=== PATIENT | male | born 1940 | race Caucasian/White ===

== ENCOUNTER 2017-11-01 09:14 | Outpatient (CLI) | payer MEDICARE, BC ==
--- NOTE | 2017-11-01 10:01 | RAD ---
CHEST PA AND LATERAL: History: 77-year-old male with history of dyspnea. FINDINGS: Heart size within normal limits. The lungs are clear. IMPRESSION: No acute intrathoracic disease. Atherosclerosis of the aorta with ectasia. Stable from prior exam, . POS: KEVIN
== END 2017-11-01 09:15 | disposition home or self-care (01) ==
LOC: RAD 09:14
PROVIDERS: ATTEND Internal Medicine Critical Care Medicine
DX: R06.00 Dyspnea, unspecified (principal); I70.0 Atherosclerosis of aorta
CPT/HCPCS: 71020

== ENCOUNTER 2018-09-07 16:26 | Outpatient (CLI) | payer MEDICARE, BC ==
[2018-09-07 17:59] LABS: ALT (SGPT) 34 U/L (8-55); AST (SGOT) 29 U/L (5-34); Albumin 4.1 g/dL (3.4-4.8); Alkaline Phosphatase 154 U/L (40-150); Anion Gap 15 mmol/L (10-20); BUN (Urea Nitrogen) 42 mg/dL (8.4-25.7); Bilirubin, Direct 2.5 mg/dL (0.1-0.3); Bilirubin, Total 4.7 mg/dL (0.2-1.2); Calc. Creatinine Clearance 0 mL/min (70-130); Calcium 9.6 mg/dL (7.8-10.44); Carbon Dioxide 27 mmol/L (23-31); Chloride 96 mmol/L (98-107); Estimated GFR-MDRD 34; Globulin 2.1 g/dL (2.4-3.5); Glucose 91 mg/dL (83-110); Potassium 3.8 mmol/L (3.5-5.1); Protein, Total 6.2 g/dL (5.8-8.1); Sodium 134 mmol/L (136-145)
[2018-09-07 18:29] LABS: Hemoglobin 13.5 g/dL (14.0-18.0); Lymphocytes 80 % (21-51); MDiff Complete? YES; Mean Corpuscular HGB CONC 32.8 g/dL (32.0-36.0); Mean Corpuscular Hemoglobin 32.4 pg (27.0-31.0); Mean Corpuscular Volume 98.9 fL (78.0-98.0); Mean Platelet Volume 10.3 fL (7.4-10.4); Monocytes 1 % (0-10); Neutrophil 18 % (42-75); PLT Morphology Comment Appears Decreased; Platelet Count 109 thou/uL (130-400); RBC Distribution Width 12.1 % (11.5-14.5); RBC Morphology Normal; Red Blood Cell (RBC) Count 4.15 mill/uL (4.70-6.10); Reflex for Review?? NO
== END 2018-09-07 16:27 | disposition home or self-care (01) ==
LOC: LABBT 16:26
PROVIDERS: ATTEND Surgery
DX: Z01.812 Encounter for preprocedural laboratory examination (principal); K80.20 Calculus of gallbladder without cholecystitis without obstruction; K80.50 Calculus of bile duct without cholangitis or cholecystitis without obstruction
CPT/HCPCS: 80053; 80076; 85025

== ENCOUNTER 2018-09-11 06:26 | Inpatient (IN) | payer MEDICARE, BC ==
[2018-09-07 16:42] VITALS: BMI 30.2
[2018-09-11] MEDS ORDERED: cefOXitin 2 GM VIAL ONE (07:03)
[2018-09-11] MEDS ORDERED: Sodium Chloride 0.9% 100 ML ONE (07:04)
[2018-09-11] MEDS ORDERED: Fentanyl 250 MCG/5 ML VIAL ONE (08:40)
[2018-09-11] MEDS ORDERED: Bupivacaine/Epinephrine 0.25% 30 ML VIAL ONE (08:49)
[2018-09-11] MEDS ORDERED: Iothalamate Meglumine 60% 50 ML VIAL FS ONE (08:59)
[2018-09-11] MEDS ORDERED: Promethazine HCl 25 MG/ML VIAL IM PRN (10:27)
[2018-09-11] MEDS ORDERED: Dextrose 5% in Water 1,000 ML IV PRN (10:27)
[2018-09-11] MEDS ORDERED: Dextrose 50% Abboject 50 ML SYRINGE SLOW IVP PRN (10:27)
[2018-09-11] MEDS ORDERED: HYDROcodone/Acetaminophen 10/325 mg Tablet PO PRN (10:27)
[2018-09-11] MEDS ORDERED: Mag-Al 1200 mg/1200 mg/30 ML UDCUP PO PRN (10:27)
[2018-09-11] MEDS ORDERED: Ondansetron HCl/PF 4 MG/2 ML Vial IVP PRN (10:27)
[2018-09-11] MEDS ORDERED: hydrALAZINE 20 MG/ML VIAL SLOW IVP PRN (10:27)
[2018-09-11] MEDS ORDERED: Calcium Carbonate 500 MG ChewTAB PO PRN (10:27)
[2018-09-11] MEDS ORDERED: Fentanyl 100 MCG/2 ML VIAL ONE (10:54)
[2018-09-11] MEDS ORDERED: D5 1/2 NS w/20 mEq KCL 1,000 ML ONE (10:57)
--- NOTE | 2018-09-11 12:55 | OP ---
PREOPERATIVE DIAGNOSIS: Gangrenous cholecystitis. SURGEON: Sudhir Freedman M.D. PROCEDURE PERFORMED: Laparoscopic cholecystectomy with intraoperative cholangiogram. INDICATIONS: An 78-year-old male who has been having severe epigastric pain for the last 5 days. He had an ultrasound showing gallstones and mild wall thickening. He is on Xarelto for atrial fibrilla tion. He has been off that now for 3 days. His liver function tests were elevated. FINDINGS: He had a gangrenous gallbladder. Negative cholangiogram. PROCEDURE IN DETAIL: After informed consent was obtained, the patient was taken to the operating piter m and given general endotracheal anesthesia, placed in the supine position. The abdomen was prepped and draped in usual fashion. Local anesthesia infiltrated subcutaneously and deep and a subumbilical incision was performed. The subcu divided sharply. The fascia was grasped and two stay sutures of 0 Vicryl placed through either side of midline. Midline incised. Digital palpation revealed no loca l adhesions. A blunt 10-12 trocar inserted. Pneumoperitoneum was created to a pressure of 15 mmHg. Zero degree laparoscope inserted under direct vision, three 5 mm ports placed subcostally. The gall bladder was distended and plastered with omentum. The omentum was taken down to expose the dome of t he gallbladder. This looked necrotic. It was aspirated and 150 mL of thick cloudy fluid removed. T his was sent for culture and sensitivity. Then using blunt and sharp dissection, the omentum was pee led off the gallbladder as well as the duodenum to expose the cystic duct and artery. A clip was emilia christal at the base of the cystic duct and the cystic duct was incised. An Arrow cholangiocatheter inser leida. Intraoperative cholangiogram performed. This showed free flow into the duodenum, no filling de fects, normal intrahepatic ducts. The catheter removed. The cystic duct was triply ligated and divi ded. The artery triply ligated and divided. The gallbladder was removed from its fossa utilizing el ectrocautery. It was placed in an Endosac and removed from the abdomen in the Endosac. Hemostasis a chieved utilizing electrocautery as well as Nichole powder. A drain was placed and brought out throug h the lateral most incision Hemostasis assured. Trocars and retractors removed. The fascia closed w ith interrupted 0 Vicryl suture. The skin closed with interrupted 4-0 Rapide. Dermabond applied. T he patient tolerated the procedure well and was transferred to recovery in good condition. Sponge an d needle count verified correct x2.
[2018-09-11] MEDS: Piperacillin/Tazobactam 3.375 GM in Sodium Chloride 0.9% 100 ML IVPB SCH ×2 (13:08→18:30)
[2018-09-11] MEDS ORDERED: PHENYLEPHRINE-NS 100 MCG/ML 10 ML SYRINGE ONE (14:21)
[2018-09-11] MEDS ORDERED: Ondansetron HCl/PF 4 MG/2 ML Vial ONE (14:21)
[2018-09-11] MEDS ORDERED: Glycopyrrolate 0.2 MG/ML 5 ML SYRINGE ONE (14:21)
--- NOTE | 2018-09-11 17:40 | RAD ---
INTRAOPERATIVE CHOLANGIOGRAM: Date: 09/11/18 HISTORY: Cholecystectomy EXPOSURE: 0.635 mGy*cm^2. 2 seconds. FINDINGS: Two fluoroscopic views demonstrate opacification of normal caliber intra and extrahepatic biliary sys tem. Contrast is noted in the duodenum. IMPRESSION: Fluoroscopy as above. POS: KEVIN
[2018-09-11] MEDS: D5 1/2 NS w/20 mEq KCL 1,000 ML IV SCH ×2 (18:31→20:44)
[2018-09-11] MEDS: Tamsulosin HCl 0.4 MG CAP PO SCH (20:44)
[2018-09-11] MEDS: HYDROcodone/Acetaminophen 10/325 mg Tablet PO PRN (20:44)
[2018-09-11] MEDS: Famotidine/PF 20 mg/2ml Vial SLOW IVP SCH (20:44)
[2018-09-11] MEDS: Famotidine 20 MG TAB PO SCH (20:44)
[2018-09-11] MEDS ORDERED: Tamsulosin HCl 0.4 MG CAP PO SCH (21:00)
[2018-09-11] MEDS: Zolpidem Tartrate 5 MG TAB PO PRN (22:19)
[2018-09-12] MEDS: Piperacillin/Tazobactam 3.375 GM in Sodium Chloride 0.9% 100 ML IVPB SCH ×5 (00:09→23:37)
[2018-09-12] MEDS: D5 1/2 NS w/20 mEq KCL 1,000 ML IV SCH ×3 (02:59→20:45)
[2018-09-12 06:18] LABS: Band 2 % (5-11); Hemoglobin 10.9 g/dL (14.0-18.0); Lymphocytes 61 % (21-51); MDiff Complete? YES; Mean Corpuscular HGB CONC 31.6 g/dL (32.0-36.0); Mean Corpuscular Hemoglobin 31.5 pg (27.0-31.0); Mean Corpuscular Volume 99.4 fL (78.0-98.0); Monocytes 3 % (0-10); Neutrophil 34 % (42-75); PLT Morphology Comment Appears Adequate; Platelet Count 142 thou/uL (130-400); RBC Distribution Width 11.8 % (11.5-14.5); Red Blood Cell (RBC) Count 3.48 mill/uL (4.70-6.10); White Blood Cell (WBC) Count 30.8 thou/uL (4.8-10.8)
[2018-09-12 06:24] LABS: ALT (SGPT) 39 U/L (8-55); AST (SGOT) 48 U/L (5-34); Albumin 3.1 g/dL (3.4-4.8); Alkaline Phosphatase 152 U/L (40-150); Anion Gap 11 mmol/L (10-20); BUN (Urea Nitrogen) 14 mg/dL (8.4-25.7); Bilirubin, Total 1.9 mg/dL (0.2-1.2); Calc. Creatinine Clearance 81 mL/min (70-130); Calcium 8.8 mg/dL (7.8-10.44); Carbon Dioxide 27 mmol/L (23-31); Chloride 101 mmol/L (98-107); Estimated GFR-MDRD 64; Globulin 2.2 g/dL (2.4-3.5); Glucose 141 mg/dL (83-110); Lipase 8 U/L (8-78); Potassium 3.8 mmol/L (3.5-5.1); Protein, Total 5.3 g/dL (5.8-8.1); Sodium 135 mmol/L (136-145)
[2018-09-12] MEDS ORDERED: Torsemide 20 MG TAB PO SCH ×2 (09:00→11:30)
--- NOTE | 2018-09-12 09:31 | PRG ---
DATE OF SERVICE: 09/12/2018 SUBJECTIVE: The patient feels a lot better today. Minimal pain, no nausea or vomiting. He is meka ating a regular diet. PHYSICAL EXAMINATION: VITAL SIGNS: His temperature is 98.5, pulse 80, blood pressure 132/77. He has had 160 out his BOLIVAR, s erosanguineous. LABORATORY: His white count is 30, H&H 10 and 34, platelet count of 142. Electrolytes; his T-biliru bin is 1.9 is down from 4.7, so that is an improvement. Alkaline phosphatase 152. ASSESSMENT: Improved. PLAN: We will saline lock IV. I want him to have at least another dose of IV antibiotics. I need h im to wait at least until tomorrow to start his Eliquis.
[2018-09-12] MEDS: Atenolol 25 MG TAB PO SCH (09:33)
[2018-09-12] MEDS: Enoxaparin Sodium 40 MG/0.4 ML SYRINGE SC SCH (09:33)
[2018-09-12] MEDS: Lisinopril 10 MG TAB PO SCH (09:33)
[2018-09-12] MEDS: Famotidine 20 MG TAB PO SCH ×2 (09:34→20:48)
[2018-09-12] MEDS: Famotidine/PF 20 mg/2ml Vial SLOW IVP SCH ×2 (12:41→20:49)
[2018-09-12] MEDS: HYDROcodone/Acetaminophen 10/325 mg Tablet PO PRN (15:25)
[2018-09-12] MEDS: Tamsulosin HCl 0.4 MG CAP PO SCH (20:48)
[2018-09-12] MEDS: Zolpidem Tartrate 5 MG TAB PO PRN (20:48)
[2018-09-13] MEDS: D5 1/2 NS w/20 mEq KCL 1,000 ML IV SCH (04:57)
[2018-09-13] MEDS: Piperacillin/Tazobactam 3.375 GM in Sodium Chloride 0.9% 100 ML IVPB SCH ×2 (06:01→11:40)
[2018-09-13] MEDS ORDERED: Torsemide 20 MG TAB PO SCH (09:00)
[2018-09-13] MEDS: Lisinopril 10 MG TAB PO SCH (09:01)
[2018-09-13] MEDS: Famotidine 20 MG TAB PO SCH (09:01)
[2018-09-13] MEDS: Atenolol 25 MG TAB PO SCH (09:02)
[2018-09-13] MEDS: Famotidine/PF 20 mg/2ml Vial SLOW IVP SCH (09:04)
[2018-09-13] MEDS: HYDROcodone/Acetaminophen 10/325 mg Tablet PO PRN (09:06)
[2018-09-13] MEDS: Enoxaparin Sodium 40 MG/0.4 ML SYRINGE SC SCH (11:34)
[2018-09-13 11:46] VITALS: BP 141/85; TEMP 98.1
--- NOTE | 2018-09-13 13:10 | DIS ---
DISCHARGE DIAGNOSIS: Acute gangrenous cholecystitis. PROCEDURES DURING ADMISSION: Laparoscopic cholecystectomy. HOSPITAL COURSE: The patient was admitted, given IV antibiotics, taken to the operating room where vicky saba underwent a laparoscopic cholecystectomy, was found to have a gangrenous gallbladder. Cultures gre w out Klebsiella pneumoniae and Enterobacter. He was treated with IV antibiotics. He was drained. Drain output became minimal. He is tolerating a regular diet. He is afebrile. Pain has been well c ontrolled on p.o. meds. He is discharged home on his usual medications with ciprofloxacin 500 b.i.d. , Zofran and hydrocodone. He will follow up with me in 2 weeks. He will resume his Xarelto.
== END 2018-09-13 13:35 | disposition home or self-care (01) | DRG 419 ==
LOC: SDC 06:26 → SURG A 10:27
PROVIDERS: ADMIT Surgery; ATTEND Surgery
PROC: 0FT44ZZ Resection of Gallbladder, Percutaneous Endoscopic Approach (ICD-10-PCS; principal; 2018-09-11)
PROC: BF101ZZ Fluoroscopy of Bile Ducts using Low Osmolar Contrast (ICD-10-PCS; 2018-09-11)
DX: K81.0 Acute cholecystitis (principal); K82.A1 Gangrene of gallbladder in cholecystitis; B96.1 Klebsiella pneumoniae [K. pneumoniae] as the cause of diseases classified elsewhere; Z87.891 Personal history of nicotine dependence; Z80.9 Family history of malignant neoplasm, unspecified
CPT/HCPCS: 36415; 47532; 80053; 83690; 85025; 87070; 87077; 87186; 87205; 88304; J0694; J1650; J2270; J2405; J2543; J3010; J7050; Q9961

== ENCOUNTER 2021-12-29 19:41 | Emergency (ER) | payer MEDICARE, BC ==
[2021-12-29 21:15] LABS: ALT (SGPT) 14 U/L (8-55); AST (SGOT) 19 U/L (5-34); Albumin 4.1 g/dL (3.4-4.8); Alkaline Phosphatase 124 U/L (40-110); Anion Gap 14 mmol/L (10-20); BUN (Urea Nitrogen) 29 mg/dL (8.4-25.7); CK (CPK) 54 U/L (30-200); Calc. Creatinine Clearance 0 mL/min (70-130); Calcium 9.3 mg/dL (7.8-10.44); Carbon Dioxide 27 mmol/L (23-31); Chloride 102 mmol/L (98-107); Globulin 1.9 g/dL (2.4-3.5); Glucose 141 mg/dL (83-110); Potassium 4.4 mmol/L (3.5-5.1); Sodium 139 mmol/L (136-145)
[2021-12-29 21:19] LABS: Hemoglobin 13.7 g/dL (14.0-18.0); Hypochromia SLIGHT = 6-15 cells (100X) (0-5/hpf); Lymphocytes 67 % (21-51); MDiff Complete? YES; Mean Corpuscular HGB CONC 33.2 g/dL (32.0-36.0); Mean Corpuscular Hemoglobin 32.9 pg (27.0-31.0); Mean Corpuscular Volume 98.9 fL (78.0-98.0); Mean Platelet Volume 9.4 fL (7.4-10.4); Monocytes 3 % (0-10); Neutrophil 9 % (42-75); Platelet Count 98 thou/uL (130-400); Platelet Morphology Comment Appears Decreased; RBC Distribution Width 12.1 % (11.5-14.5); Reactive Lymphocytes 21 % (0-10); Red Blood Cell (RBC) Count 4.17 mill/uL (4.70-6.10); White Blood Cell (WBC) Count 33.1 thou/uL (4.8-10.8)
== END 2021-12-29 21:58 | disposition home or self-care (01) ==
LOC: ERS 19:41
DX: E86.0 Dehydration (principal); R55 Syncope and collapse; I11.0 Hypertensive heart disease with heart failure; I50.9 Heart failure, unspecified
CPT/HCPCS: 71045; 80053; 82550; 83880; 85025; 93005

== ENCOUNTER 2024-01-04 11:04 | Outpatient (CLI) | payer MEDICARE, BC ==
[2024-01-04 12:39] LABS: PTT 26.4 sec (22.0-33.0)
[2024-01-04 12:54] LABS: Anion Gap 15 mmol/L (10-20); BUN (Urea Nitrogen) 15 mg/dL (8.4-25.7); Calc. Creatinine Clearance 0 mL/min (70-130); Carbon Dioxide 26 mmol/L (23-31); Chloride 103 mmol/L (98-107); Potassium 3.9 mmol/L (3.5-5.1); Sodium 140 mmol/L (136-145)
[2024-01-04 12:55] LABS: Calcium 9.2 mg/dL (7.8-10.44); Estimated GFR 48; Glucose 102 mg/dL (83-110)
[2024-01-04 13:02] LABS: Hematocrit 37.7 % (38.8-50.0); Hemoglobin 11.8 g/dL (13.5-17.5); Mean Corpuscular HGB CONC 31.3 g/dL (32.0-36.0); Mean Corpuscular Hemoglobin 31.1 pg (27.0-33.0); Mean Corpuscular Volume 99.5 fl (81.2-95.1); Mean Platelet Volume 11.4 fl (7.4-10.4); Platelet Count 143 10x3/uL (150-450); RBC Distribution Width 14.5 % (11.5-14.5); Red Blood Cell (RBC) Count 3.79 10x6/uL (4.32-5.72); White Blood Cell (WBC) Count 53.9 10x3/uL (3.5-10.5)
== END 2024-01-04 11:05 | disposition home or self-care (01) ==
LOC: LABBT 11:04
PROVIDERS: ATTEND Urology
DX: Z01.818 Encounter for other preprocedural examination (principal); N32.0 Bladder-neck obstruction
CPT/HCPCS: 80048; 85027; 85610; 85730; 93005; 93010

== ENCOUNTER 2024-01-10 09:19 | Inpatient (IN) | payer MEDICARE, BC ==
[2024-01-04 11:49] VITALS: BMI 25.0
[2024-01-10] MEDS ORDERED: Famotidine/PF 20 mg/2ml Vial ONE (12:10)
[2024-01-10] MEDS ORDERED: PROPOFOL 20 ML ONE (12:12)
[2024-01-10] MEDS ORDERED: fentaNYL 50 mcg/mL 1 mL Vial ONE ×5 (12:12→15:18)
[2024-01-10] MEDS ORDERED: Lidocaine 2% PF 5 ML VIAL ONE (12:13)
[2024-01-10] MEDS ORDERED: LevoFLOXacin D5W 500 mg (100 mL) BAG ONE (12:15)
[2024-01-10] MEDS ORDERED: Ondansetron PF 4 MG/2 ML Vial ONE (12:35)
[2024-01-10] MEDS ORDERED: PHENYLEPHRINE-NS 100 MCG/ML 10 ML SYRINGE ONE (12:38)
[2024-01-10] MEDS ORDERED: Metoprolol Tartrate 5 MG (5 mL) VIAL ONE (13:08)
[2024-01-10] MEDS ORDERED: Promethazine HCl 25 MG/ML VIAL IM PRN (13:54)
[2024-01-10] MEDS ORDERED: Ondansetron HCl/PF 4 MG/2 ML Vial IVP PRN (13:54)
[2024-01-10] MEDS ORDERED: valACYclovir 500 MG TAB PO PRN (14:39)
[2024-01-10] MEDS: Hyoscyamine SL 0.125 MG TAB SL PRN (17:11)
[2024-01-10] MEDS: D5 1/2 NS w/20 mEq KCL 1,000 ML IV SCH (17:12)
[2024-01-10] MEDS: Finasteride 5 MG TAB PO SCH (20:13)
[2024-01-10] MEDS: Docusate 100 MG CAP PO SCH (20:13)
[2024-01-10] MEDS: ALPRAZolam 0.5 MG TAB PO PRN (20:26)
[2024-01-10] MEDS: Acetaminophen 500 MG TAB PO PRN (20:26)
[2024-01-10] MEDS ORDERED: TRIAZOLAM 0.25 MG PO SCH (21:00)
[2024-01-11 04:21] LABS: Hematocrit 30.8 % (42.0-52.0); Hemoglobin 9.8 g/dL (14.0-18.0); Manual Diff?? YES; Mean Corpuscular HGB CONC 31.8 g/dL (32.0-36.0); Mean Corpuscular Hemoglobin 31.7 pg (27.0-31.0); Mean Corpuscular Volume 99.7 fl (78.0-98.0); Mean Platelet Volume 12.1 fL (7.4-10.4); Platelet Count 101 10x3/uL (130-400); RBC Distribution Width 14.2 % (11.5-14.5); Red Blood Cell (RBC) Count 3.09 mill/uL (4.70-6.10); White Blood Cell (WBC) Count 35.6 10x3/uL (4.8-10.8)
[2024-01-11 04:31] LABS: Delete Auto Diff?? YES
[2024-01-11 05:28] LABS: CellaVision Operator ID lab.sh2; Lymphocytes 77 % (21-51); Neutrophil 23 % (42-75); Ovalocytes SLIGHT = 2-5 cells HPF (0-1); Platelet Adequacy Comment Platelets Decreased; Polychromasia SLIGHT = 2-3 cells HPF (0-2); Total Cell Count 100
[2024-01-11] MEDS: Magnesium Oxide 250 MG TAB PO SCH (09:09)
[2024-01-11] MEDS: Torsemide 20 MG TAB PO SCH (09:10)
[2024-01-11] MEDS: Lisinopril 5 MG TAB PO SCH (09:10)
[2024-01-11] MEDS: Empagliflozin 25 MG TAB PO SCH (09:10)
[2024-01-11] MEDS: LevoFLOXacin 500 mg/D5W 500 MG in Premix 1 BAG IVPB SCH (12:17)
[2024-01-11] MEDS: Polyethylene Glycol 3350 17 GM Packet PO SCH (15:04)
[2024-01-12 04:39] LABS: Hematocrit 31.7 % (42.0-52.0); Platelet Count 100 10x3/uL (130-400)
[2024-01-12 05:15] LABS: Anion Gap 8 mmol/L (10-20); BUN (Urea Nitrogen) 14 mg/dL (8.4-25.7); Calc. Creatinine Clearance 48 mL/min (70-130); Calcium 8.5 mg/dL (7.8-10.44); Carbon Dioxide 29 mmol/L (23-31); Chloride 106 mmol/L (98-107); Estimated GFR 49; Glucose 96 mg/dL (83-110); Potassium 3.9 mmol/L (3.5-5.1); Sodium 139 mmol/L (136-145)
[2024-01-12] MEDS: Polyethylene Glycol 3350 17 GM Packet PO SCH (08:20)
[2024-01-12 11:50] VITALS: BP 155/91; TEMP 98.1
[2024-01-12] MEDS: LevoFLOXacin 500 MG TAB PO SCH (14:54)
== END 2024-01-12 14:54 | disposition home or self-care (01) | DRG 713 ==
LOC: SDC 09:19 → SJJU 16:21
PROVIDERS: ADMIT Urology; ATTEND Urology
PROC: 0VB08ZZ Excision of Prostate, Via Natural or Artificial Opening Endoscopic (ICD-10-PCS; principal; 2024-01-10)
DX: N40.1 Benign prostatic hyperplasia with lower urinary tract symptoms (principal); C91.10 Chronic lymphocytic leukemia of B-cell type not having achieved remission; N13.8 Other obstructive and reflux uropathy; I48.91 Unspecified atrial fibrillation; Z79.899 Other long term (current) drug therapy; D63.1 Anemia in chronic kidney disease; N18.31 Chronic kidney disease, stage 3a; I12.9 Hypertensive chronic kidney disease with stage 1 through stage 4 chronic kidney disease, or unspecified chronic kidney disease; Z98.890 Other specified postprocedural states
CPT/HCPCS: 36415; 36416; 80048; 85014; 85018; 85025; 85049; 88305; J1956; J2001; J2405; J2704; J3010; J3480; S0028

== ENCOUNTER 2024-09-29 10:10 | Inpatient (IN) | payer MEDICARE, BC ==
[2024-09-29 11:03] LABS: Hematocrit 33.5 % (42.0-52.0); Mean Corpuscular HGB CONC 32.8 g/dL (32.0-36.0); Mean Corpuscular Hemoglobin 30.8 pg (27.0-31.0); Mean Corpuscular Volume 93.8 fL (78.0-98.0); Mean Platelet Volume 10.4 fL (7.4-10.4); Platelet Count 317 10x3/uL (130-400); RBC Distribution Width 13.4 % (11.5-14.5); Red Blood Cell (RBC) Count 3.57 mill/uL (4.70-6.10)
[2024-09-29 11:11] LABS: ALT (SGPT) 60 U/L (8-55); AST (SGOT) 65 U/L (5-34); Albumin 2.9 g/dL (3.4-4.8); Alkaline Phosphatase 429 U/L (40-110); Anion Gap 15 mmol/L (10-20); BUN (Urea Nitrogen) 20 mg/dL (8.4-25.7); Bilirubin, Total 2.7 mg/dL (0.2-1.2); Calc. Creatinine Clearance 0 mL/min (70-130); Calcium 9.1 mg/dL (7.8-10.44); Carbon Dioxide 23 mmol/L (23-31); Chloride 94 mmol/L (98-107); Estimated GFR 56; Globulin 3.3 g/dL (2.4-3.5); Glucose 112 mg/dL (83-110); Lipase 58 U/L (8-78); Potassium 4.6 mmol/L (3.5-5.1); Protein, Total 6.2 g/dL (5.8-8.1); Sodium 127 mmol/L (136-145)
[2024-09-29 11:24] LABS: Bacteria/HPF None Seen HPF (None Seen); Bilirubin Negative (Negative); Blood, Urine Trace (Negative); CAUTI Indications for Culture Dysuria,urgency,freq; Clarity Clear (Clear); Glucose, Urine (Dipstick) Normal (Negative); Ketone, Urine Negative (Negative); Leukocyte 500 Leu/uL (Negative); Nitrite Negative (Negative); Protein, Urine (Dipstick) Negative (Neg-Trace); RBC/HPF 0-3 HPF (0-3); Squamous Epithelial None Seen HPF (0-3); Urobilinogen Normal mg/dL (Less than 2)
[2024-09-29] MEDS ORDERED: Iopamidol-370 76% 500 ML MDV (1 ML CHARGE) ONE (11:28)
[2024-09-29 11:29] LABS: Specific Gravity, Urine 1.005 (1.002-1.036)
[2024-09-29 11:30] LABS: Urine Culture Reflex No No
[2024-09-29 11:45] LABS: Anisocytosis SLIGHT = 6-15 cells HPF (0-5); Lymphocytes 86 % (21-51); Macrocytosis SLIGHT = 6-15 cells HPF (0-5); Monocytes 3 % (0-10); Neutrophil 11 % (42-75); Ovalocytes SLIGHT = 2-5 cells HPF (0-1); Platelet Adequacy Comment Platelets Decreased; Polychromasia SLIGHT = 2-3 cells HPF (0-2)
[2024-09-29 14:59] LABS: Magnesium 2.2 mg/dL (1.6-2.6)
[2024-09-29 15:17] LABS: Troponin I Less than 0.010 ng/mL (< 0.028)
[2024-09-29] MEDS ORDERED: Ondansetron PF 4 MG/2 ML Vial IVP PRN (16:24)
[2024-09-29] MEDS ORDERED: Senokot S 8.6-50 MG TAB PO PRN (16:24)
[2024-09-29 17:52] LABS: Troponin I 0.011 ng/mL (< 0.028)
[2024-09-29 18:38] VITALS: BMI 25.9
[2024-09-29] MEDS: Acetaminophen 325 MG TAB PO PRN (19:49)
[2024-09-29] MEDS: Famotidine 20 MG TAB PO SCH (19:50)
[2024-09-29] MEDS: Sodium Chloride 0.9% 1,000 ML IV SCH (20:30)
[2024-09-29] MEDS: Enoxaparin 100 MG (1 mL) SYRINGE SC SCH (20:55)
[2024-09-29] MEDS: ALPRAZolam 0.5 MG TAB PO SCH (20:55)
[2024-09-30 04:15] LABS: Hematocrit 30.1 % (42.0-52.0); Hemoglobin 9.5 g/dL (14.0-18.0); Mean Corpuscular HGB CONC 31.6 g/dL (32.0-36.0); Mean Corpuscular Hemoglobin 29.9 pg (27.0-31.0); Mean Corpuscular Volume 94.7 fL (78.0-98.0); Mean Platelet Volume 10.5 fL (7.4-10.4); Platelet Count 288 10x3/uL (130-400); RBC Distribution Width 13.5 % (11.5-14.5); Red Blood Cell (RBC) Count 3.18 mill/uL (4.70-6.10)
[2024-09-30 04:16] LABS: ALT (SGPT) 48 U/L (8-55); AST (SGOT) 48 U/L (5-34); Albumin 2.5 g/dL (3.4-4.8); Alkaline Phosphatase 367 U/L (40-110); Anion Gap 10 mmol/L (10-20); BUN (Urea Nitrogen) 16 mg/dL (8.4-25.7); Bilirubin, Total 1.9 mg/dL (0.2-1.2); Calc. Creatinine Clearance 54 mL/min (70-130); Calcium 8.6 mg/dL (7.8-10.44); Carbon Dioxide 25 mmol/L (23-31); Cardiac Risk 2.6 (Less than 4.5); Chloride 99 mmol/L (98-107); Cholesterol 99 mg/dl (< 200 Desired); Estimated GFR 55; Globulin 2.7 g/dL (2.4-3.5); Glucose 107 mg/dL (83-110); HDL Cholesterol 38 mg/dL (>60 Neg Risk); LDL Cholesterol, Calculated 49 mg/dL; Potassium 3.8 mmol/L (3.5-5.1); Protein, Total 5.2 g/dL (5.8-8.1); Sodium 130 mmol/L (136-145); Triglycerides 60 mg/dL (Less than 150)
[2024-09-30 05:46] LABS: Lymphocytes 79 % (21-51); Monocytes 2 % (0-10); Neutrophil 19 % (42-75); Platelet Adequacy Comment Platelets Normal; RBC Morphology Within Normal Limits; Smudge Cells 251.7 %
[2024-09-30] MEDS: Aspirin Chewable 81 MG TAB PO SCH (09:39)
[2024-09-30] MEDS ORDERED: TRIAZOLAM 0.25 MG PO SCH (21:00)
[2024-10-01 04:57] LABS: Hematocrit 30.6 % (42.0-52.0); Hemoglobin 9.6 g/dL (14.0-18.0); Mean Corpuscular HGB CONC 31.4 g/dL (32.0-36.0); Mean Corpuscular Hemoglobin 30.3 pg (27.0-31.0); Mean Corpuscular Volume 96.5 fL (78.0-98.0); Mean Platelet Volume 10.5 fL (7.4-10.4); Platelet Count 307 10x3/uL (130-400); RBC Distribution Width 13.3 % (11.5-14.5); Red Blood Cell (RBC) Count 3.17 mill/uL (4.70-6.10)
[2024-10-01 04:58] LABS: ALT (SGPT) 50 U/L (8-55); AST (SGOT) 45 U/L (5-34); Albumin 2.6 g/dL (3.4-4.8); Alkaline Phosphatase 399 U/L (40-110); Anion Gap 14 mmol/L (10-20); BUN (Urea Nitrogen) 12 mg/dL (8.4-25.7); Calc. Creatinine Clearance 65 mL/min (70-130); Calcium 8.8 mg/dL (7.8-10.44); Carbon Dioxide 24 mmol/L (23-31); Chloride 99 mmol/L (98-107); Estimated GFR 68; Glucose 105 mg/dL (83-110); Protein, Total 5.6 g/dL (5.8-8.1); Sodium 133 mmol/L (136-145)
[2024-10-01 05:36] LABS: Anisocytosis SLIGHT = 6-15 cells HPF (0-5); Hypochromia SLIGHT = 6-15 cells HPF (0-5); Lymphocytes 84 % (21-51); Macrocytosis SLIGHT = 6-15 cells HPF (0-5); Monocytes 1 % (0-10); Neutrophil 15 % (42-75); Ovalocytes SLIGHT = 2-5 cells HPF (0-1); Platelet Adequacy Comment Platelets Normal; Polychromasia SLIGHT = 2-3 cells HPF (0-2); Smudge Cells 164.7 %
[2024-10-01] MEDS: ALPRAZolam 0.25 MG TAB PO SCH (09:18)
[2024-10-01] MEDS: Finasteride 5 MG TAB PO SCH (09:19)
[2024-10-01] MEDS: Torsemide 20 MG TAB PO SCH (09:20)
[2024-10-01] MEDS: Tamsulosin HCl 0.4 MG CAP PO SCH (09:20)
[2024-10-01] MEDS: Lisinopril 5 MG TAB PO SCH (09:20)
[2024-10-01] MEDS: ALPRAZolam 1 MG TAB PO SCH (20:47)
[2024-10-02] MEDS ORDERED: Electrolyte Replacement Protocol 1 EACH FS SCH (04:45)
[2024-10-02 04:56] LABS: Cardiac Risk 2.4 (Less than 4.5)
[2024-10-02 05:16] LABS: Anion Gap 13 mmol/L (10-20); BUN (Urea Nitrogen) 13 mg/dL (8.4-25.7); Calc. Creatinine Clearance 66 mL/min (70-130); Calcium 8.7 mg/dL (7.8-10.44); Carbon Dioxide 22 mmol/L (23-31); Chloride 103 mmol/L (98-107); Estimated GFR 70; Glucose 94 mg/dL (83-110); Magnesium 2.1 mg/dL (1.6-2.6); Sodium 134 mmol/L (136-145)
[2024-10-02 09:32] LABS: Hematocrit 30.5 % (42.0-52.0); Hemoglobin 9.8 g/dL (14.0-18.0); Mean Corpuscular HGB CONC 32.1 g/dL (32.0-36.0); Mean Corpuscular Volume 96.5 fL (78.0-98.0); Mean Platelet Volume 10.3 fL (7.4-10.4); Platelet Count 307 10x3/uL (130-400); RBC Distribution Width 13.6 % (11.5-14.5); Red Blood Cell (RBC) Count 3.16 mill/uL (4.70-6.10)
[2024-10-02 09:42] LABS: ALT (SGPT) 54 U/L (8-55); AST (SGOT) 49 U/L (5-34); Albumin 2.6 g/dL (3.4-4.8); Alkaline Phosphatase 423 U/L (40-110); Anion Gap 11 mmol/L (10-20); BUN (Urea Nitrogen) 11 mg/dL (8.4-25.7); Bilirubin, Total 1.7 mg/dL (0.2-1.2); Calc. Creatinine Clearance 74 mL/min (70-130); Calcium 8.7 mg/dL (7.8-10.44); Carbon Dioxide 23 mmol/L (23-31); Chloride 103 mmol/L (98-107); Estimated GFR 80; Glucose 98 mg/dL (83-110); Protein, Total 5.6 g/dL (5.8-8.1); Sodium 133 mmol/L (136-145)
[2024-10-02 10:05] LABS: Lymphocytes 78 % (21-51); Monocytes 4 % (0-10); Neutrophil 17 % (42-75); Platelet Adequacy Comment Platelets Normal; Polychromasia MODERATE = 3-4 cells HPF (0-2); Reactive Lymphocytes 1 % (0-10)
[2024-10-02 16:32] VITALS: BP 131/78; TEMP 97.6
== END 2024-10-02 17:27 | disposition home or self-care (01) | DRG 841 ==
LOC: ERS 10:10 → ERHOLD 16:41 → 2SE 17:58
PROVIDERS: ADMIT Hospitalist; ATTEND Student in an Organized Health Care Education/Training Program
PROC: 4A00X4Z Measurement of Central Nervous Electrical Activity, External Approach (ICD-10-PCS; principal; 2024-10-02)
DX: C91.10 Chronic lymphocytic leukemia of B-cell type not having achieved remission (principal); E87.1 Hypo-osmolality and hyponatremia; K86.1 Other chronic pancreatitis; R47.01 Aphasia; G45.9 Transient cerebral ischemic attack, unspecified; I48.91 Unspecified atrial fibrillation; R74.01 Elevation of levels of liver transaminase levels; G47.00 Insomnia, unspecified; N40.0 Benign prostatic hyperplasia without lower urinary tract symptoms; I10 Essential (primary) hypertension; Z90.49 Acquired absence of other specified parts of digestive tract; Z98.890 Other specified postprocedural states
CPT/HCPCS: 36415; 36416; 70450; 70551; 71275; 74177; 80048; 80053; 80061; 81001; 83605; 83615; 83690; 83735; 83880; 84443; 84484; 84550; 85025; 85060; 87040; 87086; 88184; 88185; 88189; 93005; 93306; 93880; 93970; 95700; 95711; 95957; J1650; J7030; Q9967

== ENCOUNTER 2025-10-01 06:00 | Day surgery (SDC) | payer MEDICARE, BC ==
[2025-09-30 10:49] VITALS: BMI 23.8
[~2025-10-01 06:00] MED LIST: EPINEPHrine 0.3 MG in Ophthalmic Irrigation Solution 500 ML IRR SCH
[2025-10-01] MEDS ORDERED: Cyclopentolate 1% Opth Drop 2 ML BOT ONE (06:14)
[2025-10-01 06:53] LABS: Hematocrit 38.7 % (42.0-52.0); Hemoglobin 12.4 g/dL (14.0-18.0); Mean Corpuscular Hemoglobin 31.0 pg (27.0-31.0); Mean Corpuscular Volume 96.8 fL (78.0-98.0); Platelet Count 104 10x3/uL (130-400); Red Blood Cell (RBC) Count 4.00 mill/uL (4.70-6.10); White Blood Cell (WBC) Count 35.27 10x3/uL (4.8-10.8)
[2025-10-01] MEDS ORDERED: Maxitrol 0.1% Opth Oint 3.5 GM TUBE ONE ×2 (06:55→07:38)
[2025-10-01 06:58] LABS: Anion Gap 14 mmol/L (10-20); BUN (Urea Nitrogen) 22 mg/dL (8.4-25.7); Calc. Creatinine Clearance 44 mL/min (70-130); Calcium 9.6 mg/dL (7.8-10.44); Carbon Dioxide 24 mmol/L (23-31); Chloride 104 mmol/L (98-107); Glucose 97 mg/dL (83-110); Potassium 4.1 mmol/L (3.5-5.1); Sodium 138 mmol/L (136-145)
[2025-10-01] MEDS ORDERED: Lidocaine 1% PF 5 ML VIAL ONE ×2 (06:58→07:38)
[2025-10-01] MEDS ORDERED: CEFAZOLIN 1 GM VIAL ONE (07:38)
[2025-10-01] MEDS ORDERED: PROPOFOL 200 MG/20 ML VIAL ONE (07:38)
[2025-10-01] MEDS ORDERED: Lidocaine 4% PF 5 ML AMP ONE (07:38)
[2025-10-01 09:05] LABS: Burr Cells SLIGHT = 2-5 cells HPF (0-1); Platelet Adequacy Comment Platelets Decreased; Polychromasia SLIGHT = 2-3 cells HPF (0-2)
== END 2025-10-01 08:43 | disposition home or self-care (01) ==
LOC: SDC 06:00
PROVIDERS: ATTEND Ophthalmology Retina Specialist
PROC: 08B53ZZ Excision of Left Vitreous, Percutaneous Approach (ICD-10-PCS; principal; 2025-10-01)
DX: H43.392 Other vitreous opacities, left eye (principal); I10 Essential (primary) hypertension; I48.91 Unspecified atrial fibrillation; Z79.899 Other long term (current) drug therapy; Z90.49 Acquired absence of other specified parts of digestive tract
CPT/HCPCS: 67036; 80048; 85025; J0166; J3010; J0690; J2704; J3301; J3490